=== PATIENT | male | born 1960 | race Caucasian/White ===

== ENCOUNTER → 2017-06-19 | Outpatient (CLI) | payer OTHER ==
[~2017-06-19] MED LIST: HYDR-5688 PO; HYZ/50125 PO; IBUP-1459 PO; LOSA1TAB PO; OXYC-57 PO; OXYC-594 PO
--- NOTE | 2017-06-19 15:26 | DIAGNOSTIC IMAGING REPORT ---
C-SPINE ROUTINE 4 OR 5 VIEWS CLINICAL HISTORY: 56 years-old Male presenting with R29.898 Shoulder [id number]. TECHNIQUE: Lateral, bilateral oblique, frontal, open-mouth odontoid and swimmer's view of the cervical spine were obtained. COMPARISON: None. FINDINGS: Slight reversal of normal cervical lordosis centered at C4. Mild vertebral body height loss of C5 suggested. Intervertebral disc height loss of C4-5 and to a greater extent at C5-6. Disc osteophyte complexes noted at these 2 levels. No radiographic evidence of acute fracture or subluxation. No widening of the atlantodental interval. No prevertebral soft tissue swelling. No radiographic evidence of osseous neural foraminal narrowing. Lateral masses of C1 articulate normally with C2. The radiograph for limited by incomplete visualization of the C7 vertebral body, which is not aided by the swimmer's view. IMPRESSION: Allowing for complete visualization of the C7 vertebral body, focal degenerative changes at C4-5 and C5-6 without osseous neural foraminal narrowing or radiographic evidence of acute osseous injury. Electronically signed by: Jez Conway M.D. 06/19/2017 3:24 PM Dictated Date/Time: 06/19/2017 3:22 PM
== END | disposition home or self-care (01) ==
LOC: C.RADBC 14:44
PROVIDERS: ATTEND Neuromusculoskeletal Medicine & OMM
DX: R29.898 Other symptoms and signs involving the musculoskeletal system (principal)

== ENCOUNTER → 2017-07-25 | Outpatient (CLI) | payer OTHER ==
[~2017-07-25] MED LIST changes: -IBUP-1459 PO; -LOSA1TAB PO; -OXYC-594 PO
--- NOTE | 2017-07-25 10:56 | DIAGNOSTIC IMAGING REPORT ---
TWO VIEW CHEST CLINICAL HISTORY: Preoperative examination. FINDINGS: PA and lateral chest radiographs are compared to study dated 09/08/2013 and correlated with chest CT dated 05/05/2014. The heart is top normal for projection. The pulmonary vasculature is noncongested. The lungs and pleural spaces are clear. There is no pneumothorax. There are numerous healed left-sided rib fractures. Degenerative change is noted in the thoracic spine. IMPRESSION: No active disease in the chest. Electronically signed by: Daniel Paris M.D. 07/25/2017 10:55 AM Dictated Date/Time: 07/25/2017 10:54 AM
[2017-07-25 12:13] LABS: BASO % 0.2 %; BASO ABS # 0.02 K/uL (0-0.2); EOS % 1.1 %; EOS ABS # 0.09 K/uL (0-0.5); HEMATOCRIT 45.9 % (42-52); HEMOGLOBIN 15.8 g/dL (14.0-18.0); IG# 0.04 K/uL (0.00-0.02); LYMPH % 14.3 %; LYMPH ABS # 1.15 K/uL (1.2-3.4); MEAN CORPUSCULAR HEMOGLOBIN 30.6 pg (25-34); MEAN CORPUSCULAR HGB CONC 34.4 g/dl (32-36); MONO % 7.4 %; NEUT % 76.5 %; NEUT ABS # 6.17 K/uL (1.4-6.5); PLATELET COUNT 248 K/uL (130-400); RED CELL DISTRIBUTION WIDTH CV 13.5 % (11.5-14.5); RED CELL DISTRIBUTION WIDTH SD 43.9 fL (36.4-46.3); WHITE BLOOD COUNT 8.07 K/uL (4.8-10.8)
[2017-07-25 12:20] LABS: INR 0.9 (0.9-1.1); PTT PATIENT 26.4 SECONDS (21.0-31.0)
[2017-07-25 12:40] LABS: BLOOD UREA NITROGEN 19 mg/dl (7-18); CALCIUM 9.2 mg/dl (8.5-10.1); CARBON DIOXIDE 23 mmol/L (21-32); CREATININE 0.84 mg/dl (0.60-1.40); GLUCOSE 102 mg/dl (70-99); POTASSIUM 3.4 mmol/L (3.5-5.1); SODIUM 136 mmol/L (136-145)
== END | disposition home or self-care (01) ==
LOC: C.LAB 10:22
PROVIDERS: ATTEND Orthopaedic Surgery Orthopaedic Surgery of the Spine
DX: Z01.810 Encounter for preprocedural cardiovascular examination (principal); Z01.811 Encounter for preprocedural respiratory examination; Z01.812 Encounter for preprocedural laboratory examination

== ENCOUNTER 2017-08-26 05:41 | Inpatient (IN) | payer OTHER ==
[2017-08-21 15:45] VITALS: BMI 36.0
--- NOTE | 2017-08-25 15:57 | HISTORY & PHYSICAL EXAMINATION ---
DATE OF ADMISSION: 08/26/2017 PREOPERATIVE HISTORY AND PHYSICAL CHIEF COMPLAINT: Left arm weakness. HISTORY OF PRESENT ILLNESS: Wesley is 56. He has pain in his neck, arm, upper extremity, 2-level disk pathology, profound weakness to his left upper extremity. The disk pathology is between C4-C5 and C5-C6. PAST MEDICAL HISTORY: Positive for hypertension, obesity, childhood illnesses. PAST SURGICAL HISTORY: Appendix. ALLERGIES: Negative. FAMILY HISTORY: Negative for stroke, diabetes. SOCIAL HISTORY: He is , 2 grown children, 3-4 alcoholic beverages daily. Nonsmoking for 3 years. Very active lifestyle. REVIEW OF SYSTEMS: Denies fevers, sweats, chills. Ear, nose and throat negative. Denies chest pain, palpitations. No asthma, wheezing, shortness of breath. No nausea, vomiting, urgency, frequency, or dysuria. He has mostly weakness to his extremities of major complaint. No diabetes, no easy bruisability. MEDICATIONS: Losartan. OBJECTIVE: VITAL SIGNS: ____ 140/50 blood pressure, pulse of 80, respiration rate 16, temperature 97.4. HEENT: Pupils react to light and accommodation. Ear, nose and throat clear. NECK: Supple, no masses, no adenopathy. CARDIAC: Normal S1, S2, no S3. LUNGS: Clear to auscultation. No rales, rhonchi, wheezing. ABDOMEN: Obese, although soft. No organomegaly. EXTREMITIES: Intact x4. He has profound weakness, left upper extremity; loss of reflex, left upper extremity; weakness of deltoid function, biceps function; positive Spurling maneuver. IMAGES: Reviewed. IMPRESSION: A 2-level disk pathology in 56-year-old gentleman who is obese with hypertension. DISPOSITION: Includes a 2-level ACDF of the cervical spine, C4-C5 and C5-C6 of the cervical spine at [facility] on August 26 with iliac crest bone graft.
[2017-08-26] VITALS (17 sets, daily range): BP systolic 119–155; BP diastolic 72–89; PULSE 81–100; TEMP 36.4–37.3; O2SAT 94–100; Ht 180.3 cm; Wt 118.2 kg
[~2017-08-26] VITALS: Ht 180.3 cm; Wt 118.2 kg
[~2017-08-26 05:41] MED LIST changes: +CEFAZOLIN 2000MG IV PUSH 15 ML IV SCH; -HYDR-5688 PO; +LACTATED RINGER'S 1000ML 1,000 ML IV SCH; +LACTATED RINGER'S 1000ML IV SCH; -OXYC-57 PO
[2017-08-26] MEDS ORDERED: CEFAZOLIN 2000MG IV PUSH 15 ML IV SCH (06:00)
[2017-08-26] MEDS ORDERED: LACTATED RINGER'S 1000ML IV SCH (06:00)
[2017-08-26] MEDS ORDERED: LACTATED RINGER'S 1000ML 1,000 ML IV SCH (06:00)
[2017-08-26] MEDS ORDERED: LOSA1TAB PO (06:19)
[2017-08-26] MEDS ORDERED: IBUP-1459 PO (06:20)
[2017-08-26] MEDS ORDERED: MIDAZOLAM HCL 1 MG/ML 2ML VIAL ONE (06:51)
[2017-08-26] MEDS ORDERED: FENTANYL CITRATE INJ 50 MCG/1 ML 2 ML VIAL ONE (06:51)
[2017-08-26] MEDS ORDERED: LIDOCAINE HCL 2% JELLY 30 ML TUBE EXT ONE (06:54)
[2017-08-26] MEDS ORDERED: THROMBIN FOR SOLN 20000 UNIT KIT ONE ×2 (07:02→07:03)
[2017-08-26] MEDS ORDERED: GELATIN SPONGE SZ 100 ONE (07:02)
[2017-08-26] MEDS ORDERED: BACITRACIN 50000 UNIT VIAL ONE (07:03)
[2017-08-26] MEDS ORDERED: BUPIVACAINE/EPINEPHRINE 0.5% MPF 1:200,000 30 ML VIAL ONE (07:03)
--- NOTE | 2017-08-26 07:20 | History & Physical Bridge Note ---
H&P Re-Evaluation Bridge Note: I have examined the patient, reviewed the History & Physical and in the interval since the performance of the History & Physical I have noted the following changes of clinical significance: No changes noted
[2017-08-26] MEDS ORDERED: HYDROmorphone INJ 2 MG/ML SYR/VIAL ONE (07:49)
[2017-08-26] MEDS ORDERED: KETAMINE HCL INJ 50 MG/ML 10 ML VIAL ONE (07:49)
[2017-08-26] MEDS ORDERED: LIDOCAINE HCL 2% 2 ML VIAL (20MG/ML) ONE (08:09)
[2017-08-26] MEDS ORDERED: PROPOFOL IV EMULSION 10 MG/ML 20 ML VIAL IV ONE (08:09)
[2017-08-26] MEDS ORDERED: DEXAMETHASONE SOD INJ 4 MG/ML VIAL ONE (08:09)
[2017-08-26] MEDS ORDERED: ROCURONIUM BROMIDE 10 MG/ML 5 ML VIAL IV ONE ×3 (08:09→09:57)
[2017-08-26] MEDS ORDERED: ONDANSETRON INJ 2 MG/ML 2 ML VIAL ONE ×2 (08:09→09:57)
[2017-08-26] MEDS ORDERED: HYDROmorphone INJ 2 MG/ML SYR/VIAL IV PRN ×2 (08:30→10:15)
[2017-08-26] MEDS ORDERED: ATROPINE SULFATE 0.1 MG/ML 5ML SYR IV PRN (08:30)
[2017-08-26] MEDS ORDERED: LABETALOL HCL IV 5 MG/ML 20ML IV PRN (08:30)
[2017-08-26] MEDS ORDERED: ONDANSETRON INJ 2 MG/ML 2 ML VIAL IV PRN ×3 (08:30→10:15)
[2017-08-26] MEDS ORDERED: NEOSTIGMINE METHYLSULFATE 1 MG/ML 10ML VIAL ONE (08:52)
[2017-08-26] MEDS ORDERED: GLYCOPYRROLATE INJ 0.2 MG/ML VIAL ONE (08:52)
[2017-08-26] MEDS ORDERED: CEFAZOLIN SOD 1 GM VIAL ONE (08:52)
--- NOTE | 2017-08-26 10:08 | [facility] Post Operative Brief Note ---
Immediate Operative Summary Operative Date Aug 26, 2017. Pre-Operative Diagnosis C4-C5, C5-C6 disc pathology Post-Operative Diagnosis cord compression Procedure(s) Performed acdf c4-[address] Tomy Puckett Fusing Machine Operator Surgeon(s) Kobe Cardenas PA-C Estimated Blood Loss 20cc Findings Consistent with Post-Op Diagnosis Specimens 0 Drains jesse Anesthesia Type General Complication(s) none Disposition Disposition: Recovery Room / PACU
--- NOTE | 2017-08-26 10:09 | DIAGNOSTIC IMAGING REPORT ---
CERVICAL 2 OR 3 VIEWS CLINICAL HISTORY: 56 years-old Male presenting with C4-C5, C5-C6 ANTERIOR CERVICAL DISCECTOMY AND FUSION. TECHNIQUE: 6 fluoroscopic spot image(s) obtained as part of an intraoperative procedure. COMPARISON: MRI from 07/09/2017. FINDINGS/IMPRESSION: There has been interval anterior cervical discectomy and fusion of C4-C6. Straightening of normal cervical lordosis. Please see surgical report for further details. Fluoroscopy dosage (mGy): 7.61. Fluoroscopy time: 14.3 seconds. Number of fluoroscopic spot images: 6. Electronically signed by: Jez Conway M.D. 08/26/2017 10:07 AM Dictated Date/Time: 08/26/2017 10:06 AM
[2017-08-26] MEDS ORDERED: ACETAMINOPHEN 325 MG TAB PO PRN (10:15)
[2017-08-26] MEDS ORDERED: LORAZEPAM 1 MG TAB PO PRN (10:15)
[2017-08-26] MEDS ORDERED: PROMETHAZINE HCL INJ 12.5 MG in SODIUM CHLORIDE 0.9% 50ML 50 ML IV PRN (10:15)
[2017-08-26] MEDS ORDERED: HYDROmorphone INJ 0.5 MG/0.5 ML SYR IV PRN (10:15)
[2017-08-26] MEDS ORDERED: LORAZEPAM INJ 1 MG in SYRINGE 0.5 ML IV PRN (10:15)
[2017-08-26] MEDS ORDERED: HYDROmorphone INJ 1 MG/ML SYR IV PRN (10:15)
[2017-08-26] MEDS ORDERED: MAGNESIUM HYDROXIDE SUSP 30 ML UDC PO PRN (10:15)
[2017-08-26] MEDS ORDERED: OXYCODONE/ACETAMINOPHEN 5-325 TAB PO PRN (10:15)
[2017-08-26] MEDS ORDERED: HYDROmorphone INJ 1 MG/ML SYR ONE (10:21)
--- NOTE | 2017-08-26 10:36 | OPERATIVE REPORT ---
DATE OF OPERATION: 08/26/2017 PREOPERATIVE DIAGNOSIS: Spinal cord compression with dense cervical radiculopathy. POSTOPERATIVE DIAGNOSIS: Same. PROCEDURE: Includes: 1. Two-level ACDF cervical spine at C4-C5, C5-C6, complete discectomy. 2. Structural autograft in left iliac crest x2. 3. Anterior plating and anterior cervical discectomy and fusion. SURGEON: Dr. Puckett. PERLITE GRINDER: Kobe Cardenas PA-C. COMPLICATION: Zero. BLOOD LOSS: 20. Sponge and needle count correct at the close. IMPLANTS USED: By the [employer]. DESCRIPTION OF PROCEDURE: The patient was taken to the operating room, a general intubated anesthetic provided to the patient, kept supine, scrubbed, prepped, draped sterile. We draped off both his crest and cervical spine. We made a transverse skin incision over his C5 vertebrae. He is a very heavy weight individual, it was very deep, the retractors were approximately 16 mm in length. We did get down to the spinal vertebral body fairly readily. I did a complete discectomy at C4-C5 and C5-C6. I completely cleaned out the interval, I could see perfectly. All the cartilage, all disc material was removed. I did foraminotomies. I probed. I looked for any type of free fragments and I thought for sure it was cleaned out. We then went to the left iliac crest, made a skin incision, fascial incision, harvested 2 structural autografts for the vacated discectomy sites. They were approximately 15 mm in length, approximately 7.5 mm in height and about 13-14 mm left to right. The anatomic fit was perfect. An anterior plate by the [employer] placed over the construct, 32 mm in length, secured in place. We irrigated thoroughly, closed over a Declo drain. The iliac crest irrigated and closed as well. Sterile dressings applied throughout. The patient extubated to PACU stable. Sponge and needle count correct at the close. Cervical collar also applied. I attest to the content of the Intraoperative Record and any orders documented therein. Any exception s are noted below.
[2017-08-26] MEDS: HYDROmorphone INJ 1 MG/ML SYR IV PRN ×4 (11:06→11:52)
--- NOTE | 2017-08-26 12:31 | Anesthesiology Progress Note ---
Anesthesia Post Op Note Date & Time Aug 26, 2017 at 12:31 Vital Signs Pain Intensity: 0 Vital Signs Past 12 Hours Date Time Temp Pulse Resp B/P (MAP) Pulse Ox O2 Delivery O2 Flow Rate FiO2 08/26/17 12:10 84 12 148/82 97 Nasal Cannula 4 08/26/17 12:00 36.8 73 12 146/78 96 Nasal Cannula 4 08/26/17 11:50 80 18 145/77 97 Nasal Cannula 4 08/26/17 11:40 79 12 132/91 94 Nasal Cannula 4 08/26/17 11:30 81 18 144/79 96 Nasal Cannula 4 08/26/17 11:20 73 12 141/81 95 Nasal Cannula 4 08/26/17 11:10 69 12 146/84 93 Nasal Cannula 4 08/26/17 11:00 73 12 148/89 95 Nasal Cannula 4 08/26/17 10:50 78 19 152/85 94 Nasal Cannula 4 08/26/17 10:40 75 16 155/92 97 Nasal Cannula 4 08/26/17 10:30 76 18 149/84 97 Oxymask 8 08/26/17 10:20 67 16 140/83 97 Oxymask 8 08/26/17 10:10 36 73 16 130/80 96 Oxymask 8 08/26/17 06:26 36.5 89 20 135/88 96 Room Air Notes Mental Status: alert / awake / arousable, participated in evaluation Pt Amnestic to Procedure: Yes Nausea / Vomiting: adequately controlled Pain: adequately controlled Airway Patency, RR, SpO2: stable & adequate BP & HR: stable & adequate Hydration State: stable & adequate Anesthetic Complications: no major complications apparent
[2017-08-26] MEDS: KETOROLAC TROMETHAMINE 30 MG/ML VIAL IV. SCH ×2 (13:30→20:12)
[2017-08-26] MEDS: DEXAMETHASONE INJ 10 MG in SYRINGE 0 ML IV SCH ×2 (15:45→23:05)
[2017-08-26] MEDS: CEFAZOLIN IV 1,000 MG in SYRINGE 0 ML IV SCH ×2 (15:45→23:05)
[2017-08-26] MEDS ORDERED: NALOXONE HCL 0.4 MG/1 ML VIAL/CARP IV PRN (17:15)
[2017-08-26] MEDS ORDERED: RACEPINEPHRINE 2.25% NEBU SOLN 0.5 ML VIAL INH PRN (17:15)
[2017-08-26] MEDS ORDERED: DEXAMETHASONE INJ 8 MG in SYRINGE 0 ML IV PRN (17:15)
[2017-08-26] MEDS: SODIUM CHLORIDE 0.9% 1000ML 1,000 ML IV SCH ×2 (17:23→22:42)
[2017-08-26] MEDS: OXYCODONE/ACETAMINOPHEN 5-325 TAB PO PRN ×2 (18:56→23:05)
[2017-08-26] MEDS: DOCUSATE SODIUM 100 MG CAP PO SCH (21:31)
[2017-08-26] MEDS ORDERED: NURSING VERBAL MED ORDER ONE (23:15)
[2017-08-27] VITALS (11 sets, daily range): BP systolic 130–169; BP diastolic 74–79; PULSE 81–93; TEMP 36.4–36.9; O2SAT 93–96
[2017-08-27] MEDS: KETOROLAC TROMETHAMINE 30 MG/ML VIAL IV. SCH ×2 (01:32→07:50)
[2017-08-27] MEDS ORDERED: BISACODYL 10 MG SUPP PR PRN (04:45)
[2017-08-27] MEDS ORDERED: BISACODYL 5 MG TABEC PO PRN (04:45)
[2017-08-27] MEDS: DEXAMETHASONE INJ 10 MG in SYRINGE 0 ML IV SCH (07:48)
[2017-08-27] MEDS: CEFAZOLIN IV 1,000 MG in SYRINGE 0 ML IV SCH (07:49)
--- NOTE | 2017-08-27 07:52 | Anesthesiology Progress Note ---
Anesthesia Post Op Note Date & Time Aug 27, 2017 at 07:51 Vital Signs Pain Intensity: 2.0 (2.0) Vital Signs Past 12 Hours Date Time Temp Pulse Resp B/P (MAP) Pulse Ox O2 Delivery O2 Flow Rate FiO2 08/27/17 07:39 36.7 82 19 137/77 (97) 94 Room Air 08/27/17 07:24 93 14 93 Room Air 08/27/17 05:30 36.4 81 16 140/74 94 Room Air 08/27/17 03:25 36.6 83 16 130/78 93 Room Air 08/27/17 03:17 83 14 93 Room Air 08/27/17 01:30 36.9 81 16 145/79 94 Room Air 08/26/17 23:20 36.6 82 16 134/77 94 Room Air 08/26/17 23:20 Room Air 08/26/17 23:16 89 14 95 Room Air 08/26/17 21:28 36.5 96 20 143/80 (101) 94 Room Air 08/26/17 20:20 100 14 95 Room Air Notes Mental Status: alert / awake / arousable, participated in evaluation Pt Amnestic to Procedure: Yes Nausea / Vomiting: adequately controlled Pain: adequately controlled Airway Patency, RR, SpO2: stable & adequate BP & HR: stable & adequate Hydration State: stable & adequate Anesthetic Complications: no major complications apparent
[2017-08-27] MEDS ORDERED: POLYETHYLENE (MIRALAX) 17 GM PACK PO SCH (09:00)
[2017-08-27] MEDS: DOCUSATE SODIUM 100 MG CAP PO SCH (09:04)
[2017-08-27] MEDS ORDERED: OXYC-106 PO (09:06)
--- NOTE | 2017-08-27 09:08 | Discharge Instructions ---
Discharge Instructions Date of Service Aug 27, 2017. Admission Reason for Admission: Status Post Cervical Spinal Fusion Discharge Discharge Diagnosis / Problem: cord compression Discharge Goals Goal(s): Improve function Activity Recommendations Activity Limitations: as noted below Lifting Limitations: no more than 5 pounds, until after follow-up appointment Exercise/Sports Limitations: until after follow-up appointment May Resume Sexual Activity: after follow-up appointment Shower/Bathe: keep incision dry . Instructions / Follow-Up Instructions / Follow-Up MEDICATIONS: Please take your prescriptions as instructed at your pre-op appointment. SPECIAL CARE: The following information is intended to answer some of the common questions and concerns regarding your surgery. Each patient is an individual and receives individual counselling throughout the course of treatment, from diagnosis to surgery all the way through recovery. What follows is not an exhaustive list, but should be a useful guide to some of the common questions and concerns patients have regarding their surgeries. These are not provided to keep you from calling us; rather, they give you something accurate and concrete to reference as you recover from your procedure. If you need us, we are available to you. As always, if you are not sure about something, call us at [phone]. MEDICAL EMERGENCIES: For these conditions, call 911 or go to your local hospital-based Emergency Department - not [facility] or equivalent. * Paralysis * Severe chest pain or difficulty breathing * Swelling or redness of either leg Spine procedures can be rather complex and though complications are rare, they do occur. In such cases, effective advice regarding emergency situations cannot always be addressed over the telephone. You may be referred to the emergency department for more effective management of your problem. Activity Limitations: It is important to give your body time to heal, so please limit your activities : * In general, don't do anything that moves your spine too much. You should avoid contact sports, twisting or heavy lifting while you recover. * 5-10 pounds is all you should attempt to lift. * You should not plan on driving for approximately 3 weeks and you should avoid traveling more than 30-45 minutes at a time. Longer trips should be broken down with walking breaks spaced appropriately. * Physical therapy is not usually required. * Walking and good posture practices will help you recover and regain your function. * Avoid straining or sudden changes in position. * In general, the goal is to take it easy and recover. Don't cause any new problems. Just relax. Showers: * Do not take a bath, use a Jacuzzi or hot tub or otherwise submerge your incision. * It is usually safe to take a shower 4-5 days after your surgery. * Your incision does not require any special creams or ointments. * Simply clean it with soap and water, dry and re-dress with a clean bandage afterwards. Incision: * Keep incision clean, dry and protected until your first follow-up appointment. * Some amount of drainage and redness is normal. Any drainage should be fairly clear and not have a foul odor. * If you feel anything is wrong or you have excessive drainage, please call us. * Your stitches and pepe will be removed 10-14 days after your surgery. At the time of your first post-op visit. * Neck surgeries are typically closed with a suture underneath the skin. The steri-strips over the incision should be maintained until we see you in the office. Bracing: * You may be provided with a back or neck brace to encourage good posture and prevent injury. It will remind you not to do too much as you heal and will alert others to the fact that you have had a surgery. * Back braces may be removed for showers and when you are resting at home. They must be worn when you are walking around for any period of time or for travel. * For neck surgery, you will likely be provided with two cervical collars. The soft collar ([place] or foam rubber) is worn most commonly throughout the day and while sleeping. The plastic collar (provided at the hospital) is for showering/bathing. * Except while eating, collars should remain in place. More specifically, bracing is provided for a purpose and should be worn. * Please obtain your brace or collars prior to your operation and bring them to the hospital with you on the day of surgery. * You should also bring your collars to your post-op appointment with Dr. Puckett. You should always take good care of your body and practice healthy habits, especially following surgery. You should: * Follow your doctor's treatment plan * Sit and stand properly with good posture (ears over shoulders, shoulders over hips) Don't slouch * Learn to lift correctly * Exercise regularly (low-impact aerobic exercise is especially good, but check with your doctor first) * Generally, be up and walking for 5-10 minutes at a time at least 3-4 times per day from the day you get home * Increasing walking to tolerance until you can walk for 20-30 minutes at a time * Attain and maintain a healthy body weight * Eat healthy foods ( a well-balanced, low-fat diet rich in fruits and vegetables) and get enough calcium * Avoid excessive use of alcohol When to call our office - If you notice any of the following: * Increased pain not relieve by pain medicine * Fevers greater then 100 degrees F, chills or flu symptoms * Increased redness around incision * Drainage from the incision that is not clear * Any foul smelling drainage * Swelling or fluid collection beneath the skin Miscellaneous: * In the hospital, you may be given a walker or cane for support while walking. These are temporary needs and are intended to prevent injuries due to falls. You may discontinue them when you feel strong and steady enough on your feet. * Sleep in a comfortable position. We find that many patients find a lounge chair or recliner with several pillows to be beneficial in the early post-operative period. * The support stockings should be used for 7-10 days and may be discontinued when you are back to walking more and conducting usual household activities. No problem is insignificant. We are here to help you and get you well. Contact us at [phone]. Definitions: Foraminotomy: If part of the disc or a bone spur (osteophyte) is pressing on a nerve as it leaves the vertebra (through an exit called the foramen), a foraminotomy may be done. Otomy means "to make an opening." A foraminotomy is making the opening of the foramen larger, so the nerve can exit without being compressed. Laminotomy: Similar to the foraminotomy, a laminotomy makes a larger opening, this time in your bony plate protecting your spinal canal and spinal cord (the lamina). The lamina may be pressing on your nerve, so the surgeon may make more room for the nerves using a laminotomy. Laminectomy: Sometimes, a laminotomy is not sufficient. The surgeon may need to remove all or part of the lamina. This procedure is called a laminectomy. This can often be done at many levels without any harmful effects. Current Hospital Diet Patient's current hospital diet: Full Liquid Diet Discharge Diet Recommended Diet: Regular Diet Procedures Procedures Performed: acdf c4-6 Pending Studies Studies pending at discharge: no Medical Emergencies . Who to Call and When: Medical Emergencies: If at any time you feel your situation is an emergency, please call 911 immediately. . Non-Emergent Contact Non-Emergency issues call your: Primary Care Provider . "Provider Documentation" section prepared by Tomy Puckett. . VTE Core Measure Inpt VTE Proph given/why not?: Treatment not indicated
--- NOTE | 2017-08-27 12:35 | DISCHARGE SUMMARY ---
HOSPITAL COURSE: He is alert, oriented, minimal complaints of pain. Vital signs stable. No chest pain, shortness of breath or confusion. ASSESSMENT: Two level anterior cervical discectomy and fusion, cervical spine, doing well, in the short run. DISPOSITION: Includes instructions, precautions, education. Discharged home later today. MEDICATIONS: On his chart for pain. FOLLOWUP: In 10 days.
== END 2017-08-27 13:23 | disposition home or self-care (01) | DRG 473 ==
LOC: C.ACU 05:41 → C.3E 07:00 → ENRESERV 11:10
PROVIDERS: ADMIT Orthopaedic Surgery Orthopaedic Surgery of the Spine; ATTEND Orthopaedic Surgery Orthopaedic Surgery of the Spine
DX: M50.021 Cervical disc disorder at C4-C5 level with myelopathy (principal); M50.022 Cervical disc disorder at C5-C6 level with myelopathy; E66.9 Obesity, unspecified; M50.121 Cervical disc disorder at C4-C5 level with radiculopathy; M50.122 Cervical disc disorder at C5-C6 level with radiculopathy; I10 Essential (primary) hypertension; Z83.3 Family history of diabetes mellitus